=== PATIENT | male | born 1995 | race Caucasian/White ===

== ENCOUNTER 2017-10-31 16:46 | Emergency (ER) | payer SELFPAY ==
[~2017-10-31] VITALS: Ht 185.4 cm; Wt 67.0 kg
[2017-10-31 17:32] LABS: HEMATOCRIT 44.6 % (38.0-50.0); HEMOGLOBIN 16.2 G/DL (12.5-16.6); MCH 32.7 PG (29.0-34.0); MCHC 36.3 G/DL (30.0-36.0); MCV 90.1 FL (86-99); PLATELET COUNT 181 K/uL (156-360); RBC DIS.WIDTH-CV 12.2 % (11.8-14.6); RBC DIS.WIDTH-SD 39.9 % (39-53); RED BLOOD COUNT 4.95 M/uL (4.00-5.50); WHITE BLOOD COUNT 5.5 K/uL (4.1-10.2)
[2017-10-31 17:41] LABS: D-DIMER ELISA < 150.00 ng/mLDDU (<230)
[2017-10-31 18:08] LABS: CHLORIDE 104 MEQ/L (99-109); GFR ESTIMATE (CALCULATED) > 59 mL/min/ (58.99-99999); GLUCOSE 95 mg/dL (70-99); POTASSIUM 3.9 MEQ/L (3.7-5.4); SODIUM 138 MEQ/L (136-147); UREA NITROGEN (BUN) 13 mg/dL (9-23)
[2017-10-31] MEDS ORDERED: ATARAX,VISTARIL25 MG PO (18:23)
[2017-10-31] MEDS ORDERED: VENTOLIN HFA18 GM IH (18:23)
[2017-10-31 19:02] LABS: TROP-I INTERPRETATION NEGATIVE; TROPONIN-I < 0.01 ng/mL (0.0-0.30)
[2017-10-31] MEDS ORDERED: NAPROSYN500 MG PO (19:08)
[2017-10-31 19:33] VITALS: BP 129/83
== END 2017-10-31 19:33 | disposition home or self-care (01) ==
LOC: EME 16:46
PROVIDERS: Physician Assistant
DX: R06.00 Dyspnea, unspecified (principal); F41.9 Anxiety disorder, unspecified; F12.90 Cannabis use, unspecified, uncomplicated; F17.200 Nicotine dependence, unspecified, uncomplicated
CPT/HCPCS: 71046; 80048; 84484; 85027; 85379; 93005; 99281; 99284; J1885; Q0177

== ENCOUNTER 2017-12-01 21:15 | Emergency (ER) | payer OTHER ==
[~2017-12-01] VITALS: Ht 185.4 cm; Wt 68.3 kg
[~2017-12-01 21:15] MED LIST: ATARAX,VISTARIL25 MG PO; NAPROSYN500 MG PO; VENTOLIN HFA18 GM IH
[2017-12-01 23:23] VITALS: BP 130/85
== END 2017-12-01 23:26 | disposition home or self-care (01) ==
LOC: EME 21:15
DX: S61.411A Laceration without foreign body of right hand, initial encounter (principal); W22.01XA Walked into wall, initial encounter; Z23 Encounter for immunization; Y99.0 Civilian activity done for income or pay
CPT/HCPCS: 99281; 99284